=== PATIENT | male | born 1995 | race Caucasian/White ===

== ENCOUNTER 2023-10-17 08:26 | Outpatient (CLI) | payer BC, SELFPAY ==
--- NOTE | 2023-10-17 | CA_ITS ---
APPROVED REPORT EXAM: Comprehensive 2D, Doppler, and color-flow Echocardiogram Rn Intern: Amarilis Jaramillo, RT(R) Ht: 6 ft 4 in Wt: 307lbs BSA: 2.66 BP: 136/86 mmHg Indications: father recently from aortic dissection, HTN, CP. 2D Dimensions EF AP4 47.00 % GL Strain -21.5 % M-Mode Dimensions RVDd 2.88 cm (0.9-2.6) LA Diam 3.79 cm (1.9-4.0) LVDd 6.06 cm (3.5-5.7) LVDs 4.83 cm (3.5-5.7) IVSd 0.89 cm (0.6-1.1) PWd 0.89 cm (0.6-1.1) EF (Teich) 40.70% FS 20.30% EDV (Teich) 184.10 mL ESV (Teich) 109.10 mL LV Diastology E Decel Time 217 (160-240 msec) E/A Ratio 3.0 Aortic Valve CAREY Index 1.09 cm2/m2 AoV Peak Haresh. 109.0 (50-130 cm/s) AO Peak GR. 4.70 mmHg AO Mean GR. 2.40 (<5 mmHg) AO VTI 24.7 (18-25 cm) CAREY (VTI) 2.97 (2.5-4.5 cm2) Mitral Valve MV E Max Haresh. 88.0 (40-130 cm/s) MV A Velocity 29.0 (40-130 cm/s) E/A Ratio 2.99 MV PHT 63.0 ms Left Ventricle The left ventricle is normal size. The left ventricular systolic function is normal. The left ventricular ejection fraction is within the normal range. There is normal left ventricular wall thickness. There is normal LV segmental wall motion. The left ventricular diastolic function is normal. LVEF is 55%. Right Ventricle The right ventricle is normal size. The right ventricular systolic function is normal. Atria The left atrium size is normal. The right atrium size is normal. There is no Doppler evidence of interatrial shunt. Aortic Valve The aortic valve opens well. There is no aortic valvular stenosis. No aortic regurgitation is present. Mitral Valve The mitral valve is normal in structure. No evidence of mitral valve stenosis. Trace mitral regurgitation. Tricuspid Valve The tricuspid valve leaflets are thin and pliable. Trace tricuspid regurgitation. RVSP is normal. Pulmonic Valve The pulmonary valve is normal in structure. Trace pulmonic regurgitation. Great Vessels The aortic root is normal in size. The ascending aorta is normal in size. IVC is normal in size and collapses >50% with inspiration. Pericardium There is no pericardial effusion. Other Information Study Quality: Fair Conclusion Normal biventricular systolic function. No significant valvular stenosis or regurgitation. No evidence of dilation of the aortic root or the proximal ascending aorta in the visualized segments. Electronically signed by : Cassie Tavera MD 10/20/2023 23:57:45
--- NOTE | 2023-10-17 08:36 | CT_ITS ---
FINAL REPORT TECHNIQUE: Axial imaging of the chest is obtained after the administration of contrast. 3-D MIP reformatted images were also obtained and reviewed per PE protocol. CLINICAL HISTORY: FAMILY HISTORY OF AORTIC DISSECTION COMPARISON: None FINDINGS: The pulmonary arteries are well filled. There is no evidence of pulmonary embolus. There is no aortic dissection or intimal flap. There is no mediastinal, hilar, or axillary lymphadenopathy. There are nodular ground glass opacities present in the inferior right upper lobe, likely infectious or inflammatory.. There is no pleural or pericardial effusion. Limited evaluation of the upper abdomen is without acute abnormality. No acute osseous abnormality. IMPRESSION: No evidence of pulmonary embolism, aortic dissection or aortic aneurysm. Nodular ground glass opacities in the inferior right upper lobe, likely infectious or inflammatory. Reviewed, Interpreted and Dictated by Meseret Molina MD Transcribed by Aga Mora Authenticated and [facility]
[2023-10-17] MEDS: SODIUM CHLORIDE 0.9% 10ML SYR (RAD ONLY) 10 ML IV (09:12)
[2023-10-17] MEDS: 0.9 % SODIUM CHLORIDE 50 ML VIAL 40 ML IV (09:12)
[2023-10-17] MEDS: IOPAMIDOL-370 (76%);100ML BOTTLE 100 ML IV (09:12)
== END 2023-10-17 23:59 ==
LOC: RAD 08:27
PROVIDERS: PCP Family Medicine; Visit Provider Family Medicine
DX: Z82.49 Family history of ischemic heart disease and other diseases of the circulatory system (principal)
CPT/HCPCS: 71275; 93306; Q9967